=== PATIENT | female | born 1975 ===

== ENCOUNTER 2022-04-15 10:56 | Emergency (ER) | payer SELFPAY ==
[2022-04-15] MEDS ORDERED: Cetirizine 10 MG Tab PO ONE (11:31)
[2022-04-15] MEDS ORDERED: predniSONE 20 MG Tab PO ONE (11:31)
== END 2022-04-15 11:58 | disposition home or self-care (01) ==
LOC: MW.ED 10:56
DX: L30.9 Dermatitis, unspecified (principal); Z88.2 Allergy status to sulfonamides; Z88.8 Allergy status to other drugs, medicaments and biological substances; Z88.0 Allergy status to penicillin
CPT/HCPCS: 99282; A9270